=== PATIENT | male | born 1995 ===

== ENCOUNTER 2024-07-28 00:06 | Inpatient (IN) | payer OTHER, SELFPAY ==
[2024-07-28 00:30] VITALS: BP 124/77; PULSE 90; RESP 18; TEMP 36.6; O2SAT 99
[2024-07-28] MEDS: QUEtiapine Fumarate 100 MG TABLET PO (01:23)
[2024-07-28 01:42] VITALS: BMI 24.6
--- NOTE | 2024-07-28 03:31 | PC.ADMIT ---
Patient admitted to [facility] from [facility] on a CV on 07/28/24 at 0030 for depression/SI. He has been homeless for many years, and spent the last year in [facility] (released on 07/15). He presented to an urgent care after stubbing his R great toe and it becoming infected. Patient was prescribed antibiotics, however it is unclear if patient was compliant with them. Patient presented to [facility] on 07/23 for toe infection and was being treated with IV antibiotics on the med floor. During his treatment he reported auditory and visual hallucinations of seeing ?little demons with hoods on.? He also made some SI statements and was placed on 1:1. Toxicology positive for cocaine, fentanyl and methadone.Patient denies alcohol use.? Upon arrival to the unit patient reports ?feeling tired, hungry and angry.? Patient irritable due to time of hospital transfer. Vital signs stable, no pain noted. Changeover completed with the assistance of male [facility]. IV in the left forearm was removed from prior hospital. Right big toe dressing in clean dry and intact, patient utilizing orthopedic boot. Cooperative with admission process and questions. Patient belongings brought to [facility] due to broken glass from drug paraphernalia. Patient denies SI/HI/AH/VH and contracts for safety.
--- NOTE | 2024-07-28 06:41 | HO.PM.IMCN ---
History of Present Illness Data of Consult Service Date: 07/28/24 Requesting physician: John Tomlin Primary Care Provider: None Physician HPI Reason for consult: medical consult Patient is a 28 year old male with a past medical history significant for substance use disorder including cocaine, fentanyl, mood disorder, history of MRSA and hypertension, admitted to adult [facility] for SI and auditory and visual hallucinations from [facility]. While at [facility] he is being treated for a right great toe infection, seen by wound care and ID on vanco and Zosyn. Upon discharge he was transitioned to Bactrim DS b.i.d. and Augmentin 875 b.i.d. times 10 days, to be completed on 08/06/2024. He had an MRI on 07/23 which was negative for osteomyelitis. He reports that he has had the infection for about 1 week, it is severely painful and rates it about an 8/10 but reports it was much more significant previously. There was no drainage or foul odor to the wound. He has no other concerns today including chest pain, shortness of breath, headache, nausea, vomiting, abdominal pain or URI symptoms. Review of Systems Constitutional: Constitutional: Denies chills, Denies fatigue, Denies fever(s) and Denies headache(s) Eyes: Eyes: Denies change in vision ENT: Denies headache(s), Denies nasal congestion, Denies nasal discharge and Denies sore throat Cardiovascular: Cardiovascular: Denies chest pain, Denies rapid heart rate, Denies leg edema and Denies dyspnea Respiratory: Respiratory: Denies chest congestion, Denies cough, Denies dyspnea and Denies wheezing Gastrointestinal: Gastrointestinal: Denies constipation, Denies diarrhea, Denies nausea and Denies vomiting Genitourinary: Genitourinary: Denies dysuria and Denies urinary urgency Musculoskeletal: Musculoskeletal: Reports as per HPI Integumentary/Breasts: Skin/Breast: Reports as per HPI and Denies rash Neurologic: Denies confusion and Denies headache(s) Psychiatric: Psychiatric: Denies confusion, Denies visual hallucinations, Denies hallucinations and Denies tactile hallucinations Endocrine: Endocrine: Denies fatigue Hematologic/Lymphatic: Hematologic/Lymphatic: Denies easy bleeding Allergic/Immunologic: Allergic/Immunologic: Denies wheezing [facility] Medical History (Updated 07/28/24 @ 06:51 by Olivia Velasquez PA-C) MRSA (methicillin resistant staph aureus) culture positive HTN (hypertension) Functional capacity: independent ambulation Social History Household Members: None Housing: Homeless Do you presently have visiting nurse or other home services: No Patient Tobacco Use Status: Current everyday Tobacco user Tobacco use type: Cigarette Cigarettes Per Day: 5 Smoked in Last 30 Days: Yes Patient Interested in Nicotine Replacement: No Patient Given Instructions on How to Stop Smoking: No (DECLINED) Use of substances other than those prescribed or required for medical reasons: Yes Substance Use Type: Crack/Cocaine Last Used Substance: Weeks (ago) Last Used Substance Other:: PRIOR TO ADMISSION AT PREVIOUS HOSPITAL (07/23/24) Currently Displaying Signs/Symptoms of Drug Intoxication Withdrawal: No Any prior treatment program specific to substance use: No Have you been hit, kicked, punched, or otherwise hurt by someone within the past year? If so, by whom?: No Do you feel safe in your current relationship?: No Current Relationship Is there a partner from a previous relationship who is making you feel unsafe now?: No Are you made to feel afraid or neglected: No Advance Directives: No Advance Directives Information Provided: No (declined) Do you have a plan to hurt others: No Plan Recently lost weight without trying: No Nutrition Risks: No Nutritional Risk Poor oral hygiene: No Narrative: smokes about 5 cigarettes/day. no etoh. uses crack cocaine, fentanyl and methadone. Meds Allergies Allergy/AdvReac Type Severity Reaction Status Date / Time shellfish derived Allergy unknown Verified 07/27/24 20:46 Active Medications: Current Medications Acetaminophen (Acetaminophen 325 Mg Tablet) 650 mg PO Q6H PRN PRN Reason: Headache/Pain Mild Scale (1-3) Al Hydroxide/Mg Hydroxide (Magnesium Hydrox/Alum Hydrox 30 Ml Oral.Susp) 30 ml PO Q6H PRN PRN Reason: Heartburn/Nausea Amoxicillin/Clavulanate Potassium (Amoxicillin/Potassium Clav 875 Mg Tablet) 875 mg PO BID CURT Stop: 08/06/24 21:01 Hydroxyzine HCl (Hydroxyzine Hcl 25 Mg Tablet) 25 mg PO Q6H PRN PRN Reason: Anxiety Magnesium Hydroxide (Milk Of Magnesia 30 Ml Oral.Susp) 30 ml PO DAILY PRN PRN Reason: Constipation Multivitamins/Vitamin C (Multivitamin Tablet) 1 tab PO DAILY CURT Nicotine (Nicotine 21 Mg Patch.Td24) 21 mg TRANSDERMA DAILY PRN PRN Reason: smoking cessation Nicotine Polacrilex (Nicotine Polacrilex 2 Mg Gum) 4 mg BUCCAL Q2H PRN PRN Reason: Nicotine Cravings Olanzapine (Olanzapine 5 Mg Tablet) 5 mg PO TID PRN PRN Reason: agitation Quetiapine Fumarate (Quetiapine Fumarate 100 Mg Tablet) 100 mg PO BEDTIME CURT Last Admin: 07/28/24 01:23 Dose: 100 mg Quetiapine Fumarate (Quetiapine Fumarate 25 Mg Tablet) 25 mg PO Q6H PRN PRN Reason: moderate anxiety Trazodone HCl (Trazodone Hcl 50 Mg Tablet) 50 mg PO BEDTIME MRX1 PRN PRN Reason: Insomnia Trimethoprim/Sulfamethoxazole (Sulfamethox/Trimeth 800/160 Tablet) 1 tab PO BID CURT Stop: 08/06/24 21:01 Home Medications ?Medication ?Instructions ?Recorded ?Confirmed ?Last Taken ?Type amoxicillin 875 mg-potassium 1 tab PO BID 07/28/24 07/28/24 Unknown History clavulanate 125 mg tablet cholecalciferol (vitamin D3) 25 100 mcg PO DAILY 07/28/24 07/28/24 07/27/24 09:00 History mcg (1,000 unit) tablet clonidine HCl 0.1 mg tablet 0.1 mg PO BID 07/28/24 07/28/24 Unknown History ibuprofen 600 mg tablet 600 mg PO Q6H PRN Pain 07/28/24 07/28/24 Unknown History quetiapine 100 mg tablet 100 mg PO BEDTIME 07/28/24 07/28/24 Unknown History sulfamethoxazole 800 1 tab PO Q12H 07/28/24 07/28/24 Unknown History mg-trimethoprim 160 mg tablet (Bactrim DS) Physical Exam Vital Signs and Narrative: Vital Signs: Last Vital Signs Temp 97.8 F 07/28/24 00:30 Pulse 90 07/28/24 00:30 Resp 18 07/28/24 00:30 BP 124/77 07/28/24 00:30 Pulse Ox 99 07/28/24 00:30 O2 Del Method Room Air 07/28/24 00:30 BMI result Body Mass Index 24.6 General: AOx3, no acute distress Resp: CTA bilaterally CVS: S1, S2, RRR GI: +BS, NT, no distention Skin: Warm, dry. wound R great toe, toenail removed. extremetly tender to touch. dressing changed and bacitracin placed on wound with clean dry dressing. no purulent drainage or bleeding. Neuro: Cranial nerves II-XII grossly intact bilaterally. Motor grossly intact bilaterally. Extremities: No LE edema Psych: Appropriate affect Const: General: No confusion Orientation/consciousness: No confusion Neuro: General: No confusion Assessment and Plan (1) Medical clearance for psychiatric admission: Status: Acute (2) Infection of great toe: Status: Acute Plan Patient is a 28 year old male with a past medical history significant for substance use disorder including cocaine, fentanyl, mood disorder, history of MRSA and hypertension, admitted to [facility] adult psych for SI and auditory and visual hallucinations from [facility]. Currently being treated for R great toe infection, MRSA+ Mood disorder/SI - plan per psych Right great toe infection, positive MRSA - continue Bactrim DS b.i.d. and Augmentin 875 b.i.d. x10 days, complete course 08/06/2024 - wound care consult Substance use disorder - addiction med consult Hypertension - patient reported he was on clonidine previously - blood pressure normal - consider restarting clonidine if needed Thank you for allowing me to participate in the pt's care. Signing off for now. Please contact the medical team if any questions or concerns.
[2024-07-28 07:28] VITALS: BP 137/90; PULSE 86; RESP 16; TEMP 36.5; O2SAT 100
[2024-07-28 08:39] LABS: MANUAL DIFF FLAG NO
[2024-07-28 08:41] LABS: Basophils Percent Auto 0.5 % (0-2); Eosinophils Absolute Auto 0.3 X10*3/uL (0.0-0.4); Eosinophils Percent Auto 3.9 % (0-4); Hematocrit 36.6 % (42.0-52.0); Hemoglobin 12.2 g/dl (14.0-18.0); Imm Gran Abs Auto 0.02 X10*3/uL (0.00-0.03); Imm Gran Pct Auto 0.3 % (0.0-0.4); Lymphocytes Absolute Auto 1.4 X10*3/uL (1.2-4.9); Lymphocytes Percent Auto 20.8 % (20-40); Mean Corpuscular HGB Conc 33.3 g/dl (31.0-36.0); Mean Corpuscular Volume 92.9 fL (80.0-98.0); Mean Platelet Volume 9.7 fL (9.4-12.4); Monocytes Absolute Auto 0.4 X10*3/uL (0.1-1.2); Monocytes Percent Auto 6.8 % (2-11); Neutrophils Absolute Auto 4.4 x10*3/uL (2.0-8.3); Neutrophils Percent Auto 67.7 % (45-73); Platelet Count 279 X10*3/uL (160-400); Red Blood Count 3.94 X10*6/uL (4.60-5.80); Red Cell Distribution Width 13.2 % (11.0-16.0); White Blood Count 6.5 X10*3/uL (4.8-10.8)
[2024-07-28 08:53] LABS: Estimated Average Glucose 97 mg/dL; Hemoglobin A1C 98.3739 umol/L; Total Hemoglobin (HGBA1C) 3132.9539 umol/L
[2024-07-28] MEDS: Sulfamethox/Trimeth 800/160 TABLET 1 TAB PO (09:04)
[2024-07-28] MEDS: Amoxicillin/Potassium Clav 875 MG TABLET PO (09:04)
[2024-07-28] MEDS: Multivitamin TABLET 1 TAB PO (09:04)
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
[2024-07-28 09:24] LABS: Alanine Aminotransferase 46 U/L (0-40); Alkaline Phosphatase 75 U/L (39-117); Anion Gap 10 (12-20); Aspartate Amino Transferase 31 U/L (5-37); Bilirubin Total 0.1 mg/dL (0.0-1.0); Blood Urea Nitrogen 13 mg/dL (9-16); Calcium 8.9 mg/dL (8.4-10.2); Carbon Dioxide 24 mmol/L (22-29); Chloride 113 mmol/L (96-108); Creatinine Clr Calc Pharmacy 129.7; Estimated Glomerular Filt Rate > 60; Glucose Random 101 mg/dL (60-115); Potassium 4.3 mmol/L (3.3-5.1); Sodium 143 mmol/L (135-145); Total Protein 7.1 g/dL (6.5-8.0)
[2024-07-28 09:25] LABS: Cholesterol 121 mg/dL (<200); HDL Cholesterol 38 mg/dL (>40); LDL Cholesterol Calculated 71 mg/dL (<100); Triglycerides 64 mg/dL (<150)
[2024-07-28 09:41] LABS: TSH reflex Free T4 2.61 uIU/mL (0.32-4.0)
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
== END 2024-07-28 14:15 | disposition home or self-care (01) | DRG 773 ==
PROVIDERS: Admitting Provider Psychiatry & Neurology Psychiatry; Visit Provider Psychiatry & Neurology Psychiatry
DX: F19.94 Other psychoactive substance use, unspecified with psychoactive substance-induced mood disorder (principal); F11.20 Opioid dependence, uncomplicated; R45.851 Suicidal ideations; F43.10 Post-traumatic stress disorder, unspecified; F14.20 Cocaine dependence, uncomplicated; F17.210 Nicotine dependence, cigarettes, uncomplicated; I10 Essential (primary) hypertension; T40.3X6A Underdosing of methadone, initial encounter; L08.9 Local infection of the skin and subcutaneous tissue, unspecified; B95.62 Methicillin resistant Staphylococcus aureus infection as the cause of diseases classified elsewhere; Z59.02 Unsheltered homelessness; Z71.6 Tobacco abuse counseling; Z86.14 Personal history of Methicillin resistant Staphylococcus aureus infection; Z79.899 Other long term (current) drug therapy
CPT/HCPCS: 36415; 80053; 80061; 83036; 84443; 85025

== ENCOUNTER → 2024-07-28 00:06 | Outpatient (BNV) | payer OTHER, SELFPAY | PROVIDERS: Admitting Provider Psychiatry & Neurology Psychiatry; Visit Provider Psychiatry & Neurology Psychiatry | DX: F14.10 Cocaine abuse, uncomplicated (principal); F19.94 Other psychoactive substance use, unspecified with psychoactive substance-induced mood disorder; F11.90 Opioid use, unspecified, uncomplicated; L08.9 Local infection of the skin and subcutaneous tissue, unspecified | CPT/HCPCS: 99232; 99499 ==

== ENCOUNTER → 2024-07-28 00:06 | Outpatient (BNV) | payer MEDICAID, SELFPAY | PROVIDERS: Admitting Provider Psychiatry & Neurology Psychiatry; Visit Provider Physician Assistant | DX: Z00.8 Encounter for other general examination (principal); L08.9 Local infection of the skin and subcutaneous tissue, unspecified | CPT/HCPCS: 99222 ==